=== PATIENT | female | born 1995 | race Caucasian/White ===

== ENCOUNTER 2022-11-14 08:59 | Emergency (ER) | payer SELFPAY ==
[~2022-11-14] VITALS: Ht 165.1 cm; Wt 131.8 kg
[2022-11-14 09:07] VITALS: BP 193/98; PULSE 80; TEMP 98.5
[2022-11-14] MEDS ORDERED: PROAIR HFA0.09 MG/AC IH (09:25)
[2022-11-14] MEDS ORDERED: ZITHROMAX Z PA250 MG PO (09:25)
== END 2022-11-14 10:00 | disposition home or self-care (01) ==
LOC: COL.ER 08:59
DX: J44.9 Chronic obstructive pulmonary disease, unspecified (principal); Z79.51 Long term (current) use of inhaled steroids; Z88.0 Allergy status to penicillin; Z28.310 Unvaccinated for COVID-19
CPT/HCPCS: J8540